=== PATIENT | female | born 1980 | race Caucasian/White ===

== ENCOUNTER 2017-03-07 12:00 | Emergency (ER) | payer OTHER ==
[~2017-03-07] VITALS: Ht 167.6 cm; Wt 68.0 kg
[~2017-03-07 12:00] MED LIST: AMT10 PO; ATEN-173 PO; GABA-113 PO; VORT1TAB PO
[2017-03-07 12:23] VITALS: Ht 167.6 cm; Wt 68.0 kg
[2017-03-07] MEDS ORDERED: PHENAZOPYRIDINE HCL 200 MG TAB PO STA (12:42)
[2017-03-07] MEDS ORDERED: CIPROFLOXACIN 500 MG TAB PO STA (12:53)
[2017-03-07 12:57] LABS: URINE APPEARANCE TURBID (CLEAR); URINE BILIRUBIN NEG (NEG); URINE COLOR YELLOW; URINE NITRITE NEG (NEG); URINE SPECIFIC GRAVITY 1.013 (1.000-1.030); UROBILINOGEN NEG (NEG); ZZUR CULT IF INDIC CLEAN CATCH YES
--- NOTE | 2017-03-07 12:59 | EMERGENCY ROOM VISIT NOTE ---
ED Visit Note First contact with patient: 12:39 CHIEF COMPLAINT: Frequent and painful urination HISTORY OF PRESENT ILLNESS: This 36 year old woman has had increased frequency of urination, burning pain with urination, and a feeling of incomplete voiding that started this morning. She passes very small volumes of urine with each episode of voiding. She denies back pain, fever, or vaginal discharge. The patient states that she has had frequent UTIs over the last 1-2 months. She states normally she takes Macrobid. She also was given Macrobid to take after intercourse. REVIEW OF SYSTEMS: 6 system review was performed and was negative unless stated otherwise in history of present illness. PMH: The patient is healthy; frequent UTIs, asthma, C-sections SOCIAL HISTORY: Patient lives with her boyfriend and children. The patient denies any tobacco or alcohol use PHYSICAL EXAM: Vital Signs: Were reviewed Reviewed Nurse's notes. GENERAL: 36- year-old white female appears uncomfortable .MENTAL Status: Alert and oriented 3. LUNGS: Clear to auscultation without wheezes rales or rhonchi. CARDIAC: Regular rate and rhythm without murmur. BACK: No CVA tenderness noted. ABDOMEN : The abdomen is soft, mildly tender in the suprapubic area, but no masses or organs are felt. EMERGENCY DEPARTMENT COURSE: The patient was evaluated. The patient was given Pyridium 200 mg by mouth. Urine dip revealed positive leukocytes positive nitrates positive blood. Urine will be sent for microanalysis and culture. The patient was given Cipro 500 mg by mouth while in the emergency room. The patient was discharged home in stable condition. DIAGNOSIS: UTI - Cystitis DISCHARGE INSTRUCTIONS & TREATMENT: Push fluids. Take Cipro as prescribed. Take Pyridium as prescribed. Call in 36 hours for urine culture results. If symptoms persist or worsen, follow-up with your family doctor or return to ER. Current/Historical Medications Scheduled Amitriptyline HCl (Amitriptyline HCl), 20 MG PO DAILY Atenolol (Tenormin), 25 MG PO DAILY Gabapentin (Neurontin), 300 MG PO TID Vortioxetine HBr (Trintellix), 5 MG PO DAILY Allergies Coded Allergies: Ibuprofen (Verified Allergy, Intermediate, facial swelling, 01/31/16) NSAIDs (Verified Allergy, Unknown, ., 01/31/16) POLLEN (Verified Allergy, Unknown, SEASONAL, 01/31/16) Vital Signs Date Time Temp Pulse Resp B/P (MAP) Pulse Ox O2 Delivery O2 Flow Rate FiO2 03/07/17 12:23 36.8 93 20 118/77 98 Room Air Laboratory Results Test 03/07/17 12:40 Medications Administered Medications (Trade) Dose Ordered Sig/Michael Route Start Time Stop Time Status Last Admin Dose Admin Phenazopyridine HCl (Pyridium Tab) 200 mg NOW STAT PO 03/07/17 12:42 03/07/17 12:43 DC 03/07/17 12:47 200 MG Departure Information Referrals Elida Coleman D.O. (PCP) Patient Instructions My [facility]
[2017-03-07 13:01] LABS: MANUAL MICROSCOPIC REQUIRED? NO; REVIEW REQ? YES
[2017-03-07] MEDS ORDERED: CIPR-255 PO (13:01)
[2017-03-07] MEDS ORDERED: PHEN-876 PO (13:01)
[2017-03-07 13:21] VITALS: BP 118/80; PULSE 93; TEMP 36.8; O2SAT 98
[2017-03-07] MEDS ORDERED: FLUC150T PO (13:24)
== END 2017-03-07 13:22 | disposition home or self-care (01) ==
LOC: C.EDB 12:02 → C.EDD 13:22
DX: N30.91 Cystitis, unspecified with hematuria (principal); J45.909 Unspecified asthma, uncomplicated; Z87.440 Personal history of urinary (tract) infections